=== PATIENT | female | born 1990 | race Hispanic/Latino ===

== ENCOUNTER 2018-03-24 15:13 | Observation (INO) | payer MEDICAID ==
[~2018-03-24] VITALS: Ht 165.1 cm; Wt 89.4 kg
[2018-03-24 16:11] LABS: APPEARANCE,URINE CLOUDY (CLEAR); BILIRUBIN,URINE NEGATIVE (NEGATIVE); COLOR,URINE YELLOW (YELLOW); GLUCOSE, URINE (UA) NEGATIVE (NEGATIVE); KETONES,URINE NEGATIVE (NEGATIVE); LEUKOCYTE ESTERASE ,URINE NEGATIVE (NEGATIVE); NITRATE,URINE NEGATIVE (NEGATIVE); OCCULT BLOOD,URINE NEGATIVE (NEGATIVE); PROTEIN,URINE TRACE (NEGATIVE)
[2018-03-24 16:27] LABS: RBC,URINE 0-1 /HPF (0-1); WBC,URINE 0-1 /HPF (0-1)
[2018-03-24 16:28] LABS: AMORPHOUS SEDIMENT,UR Moderate /LPF (None Seen); BACTERIA,URINE Moderate /HPF (None Seen); SQUAMOUS EPITHELIAL CELL,UR Rare /HPF (0-2)
== END 2018-03-24 17:00 | disposition home or self-care (01) ==
LOC: LDH 15:13
PROVIDERS: ADMIT Specialist; ATTEND Specialist
DX: O36.8130 Decreased fetal movements, third trimester, not applicable or unspecified (principal); O62.9 Abnormality of forces of labor, unspecified; O26.893 Other specified pregnancy related conditions, third trimester; R03.0 Elevated blood-pressure reading, without diagnosis of hypertension; Z3A.38 38 weeks gestation of pregnancy
CPT/HCPCS: 81001; G0378 ×3

== ENCOUNTER 2019-09-16 16:17 | Emergency (ER) | payer MEDICAID, OTHER ==
[~2019-09-16 16:17] MED LIST: ESOM2.5S PO; PNV#1COM14 PO
[2019-09-16 16:55] LABS: BASOPHILS % (AUTO) 0.3 % (0.0-5.0); EOSINOPHILS % (AUTO) 0.8 % (0.0-8.0); HEMATOCRIT 36.7 % (36-48); LYMPHOCYTES % (AUTO) 16.1 % (21.0-51.0); MEAN CORPUSCULAR HEMOGLOBIN 28.1 pg (27.0-33.0); MEAN CORPUSCULAR HGB CONC 32.7 g/dL (32.0-36.0); MEAN CORPUSCULAR VOLUME 85.9 fL (79-99); MONOCYTES % (AUTO) 4.6 % (3.0-13.0); NEUTROPHILS % (AUTO) 77.8 % (40.0-77.0); PLATELET COUNT (AUTO) 351 K/uL (130-400); RED BLOOD CELL COUNT(AUTO) 4.27 MIL/uL (4.00-5.50); RED CELL DISTRIBUTION WIDTH 12.5 % (11.0-15.5); WHITE BLOOD COUNT (AUTO) 11.8 K/uL (4.8-10.8)
[2019-09-16 17:05] LABS: CREATININE 0.8 mg/dL (0.5-1.5); POTASSIUM 3.7 mmol/L (3.5-5.1)
[2019-09-16 17:09] LABS: ALBUMIN 3.1 g/dL (3.5-5.0); BILIRUBIN,TOTAL 0.2 mg/dL (0.2-1.0); TOTAL PROTEIN, SERUM 7.6 g/dL (6.0-8.3)
[2019-09-16 17:15] LABS: BILIRUBIN,URINE Negative (NEGATIVE); COLOR,URINE Yellow (YELLOW); GLUCOSE, URINE (UA) Negative (NEGATIVE); KETONES,URINE Negative (NEGATIVE); LEUKOCYTE ESTERASE ,URINE Large (NEGATIVE); NITRATE,URINE Negative (NEGATIVE); OCCULT BLOOD,URINE Small (NEGATIVE); PH,URINE 6.5 (5.0-8.0); PROTEIN,URINE POS 1+ mg/dL (NEGATIVE); UROBILINOGEN,URINE 0.2 mg/dL (0.2-1.0)
[2019-09-16 17:18] LABS: HCG,QUAL RESULT NEGATIVE (NEGATIVE)
[2019-09-16] MEDS ORDERED: CEFTRIAXONE SODIUM 1 GM ONE (17:41)
[2019-09-16] MEDS ORDERED: ACETAMINOPHEN EXTRA STRENGTH 500 MG TABLET ONE (17:41)
[2019-09-16 17:42] LABS: APPEARANCE,URINE CLOUDY (CLEAR)
[2019-09-16 17:43] LABS: BACTERIA,URINE Many /HPF (None Seen); RBC,URINE None Seen /HPF (0-1); WBC,URINE >100 /HPF (0-1)
== END 2019-09-16 18:56 | disposition home or self-care (01) ==
LOC: EDH 16:17
DX: N10 Acute pyelonephritis (principal)
CPT/HCPCS: 36415; 80053; 81001; 81025; 83690; 85025; 87077; 87088; 87186; 96374; 99283; J0696

== ENCOUNTER 2021-10-17 11:47 | Day surgery (SDC) | payer SELFPAY ==
[2021-10-16 11:02] LABS: BASOPHILS % (AUTO) 0.3 % (0.0-5.0); HEMATOCRIT 42.8 % (36-48); LYMPHOCYTES % (AUTO) 29.2 % (21.0-51.0); MEAN CORPUSCULAR HGB CONC 33.2 g/dL (32.0-36.0); MEAN CORPUSCULAR VOLUME 87.5 fL (79-99); MONOCYTES % (AUTO) 4.7 % (3.0-13.0); NEUTROPHILS % (AUTO) 64.6 % (40.0-77.0); PLATELET COUNT (AUTO) 243 K/uL (130-400); RED BLOOD CELL COUNT(AUTO) 4.89 MIL/uL (4.00-5.50); WHITE BLOOD COUNT (AUTO) 8.7 K/uL (4.8-10.8)
[2021-10-16 14:22] VITALS: BP 122/64
[2021-10-17] VITALS (20 sets, daily range): BP systolic 111–140; BP diastolic 55–84
[~2021-10-17] VITALS: Ht 165.1 cm; Wt 85.6 kg
[~2021-10-17 11:47] MED LIST changes: -ESOM2.5S PO; +IBUP-2733 PO; -PNV#1COM14 PO
[2021-10-17] MEDS: LACTATED RINGERS 1000ML 1,000 ML IV SCH ×2 (12:25→13:54)
[2021-10-17] MEDS ORDERED: VASOPRESSIN 20 UNITS/ML 1ML VIAL ONE (12:52)
[2021-10-17] MEDS ORDERED: STRONG IODINE SOLN 14ML BOTTLE ONE (12:52)
[2021-10-17] MEDS ORDERED: MIDAZOLAM HCL 1 MG/ML 2ML VIAL ONE (13:15)
[2021-10-17] MEDS ORDERED: DEXAMETHASONE SOD PHOSPHATE 10MG/ML 1ML VIAL ONE (13:15)
[2021-10-17] MEDS ORDERED: SUCCINYLCHOLINE CHLORIDE 20 MG/ML 10 ML VIAL ONE (13:15)
[2021-10-17] MEDS ORDERED: GLYCOPYRROLATE 1 MG/5 ML SYRINGE ONE (13:16)
[2021-10-17] MEDS ORDERED: NEOSTIGMINE 5MG/5ML SYR IV ONE (13:16)
[2021-10-17] MEDS ORDERED: ONDANSETRON 4MG INJ ONE ×2 (13:16→14:12)
[2021-10-17] MEDS ORDERED: ROCURONIUM 10MG/1ML SYR 10 MG/ML ML ONE (13:16)
[2021-10-17] MEDS ORDERED: PROPOFOL 10 MG/ML 20ML VIAL IV ONE (13:16)
[2021-10-17] MEDS ORDERED: FENTANYL CITRATE PF 50 MCG/1 ML 2ML VIAL ONE (13:16)
[2021-10-17] MEDS ORDERED: MEPERIDINE-PF 25 MG/ML SYG ONE ×2 (13:26→14:38)
== END 2021-10-17 16:12 | disposition home or self-care (01) ==
LOC: DAH 11:47
PROVIDERS: ATTEND Specialist
DX: R87.613 High grade squamous intraepithelial lesion on cytologic smear of cervix (HGSIL) (principal); Z79.899 Other long term (current) drug therapy; Z98.890 Other specified postprocedural states
CPT/HCPCS: 36415; 57520; 84703; 85025; 87635; 88307; A4215; A4221; A4222; A4223; A4351; A4663; C9803; J0330; J1100; J2175 ×2; J2250; J2405 ×2; J2704; J2710; J3010; J3490 ×2